=== PATIENT | male | born 1950 | race Caucasian/White ===

== ENCOUNTER 2016-11-29 17:40 | Outpatient (CLI) | payer MEDICARE ==
[2016-11-29 17:55] LABS: #Basophils 0.1 thou/uL (0.0-0.2); #Eosinphils 0.1 thou/uL (0.0-0.7); #Lymphocytes 1.9 thou/uL (1.20-3.40); #Monocytes 0.6 thou/uL (0.11-0.59); #Neutrophils 6.2 thou/uL (1.40-6.50); %Basophils 1.2 % (0.0-1.0); %Eosinophils 1.3 % (0.0-10.0); Hematocrit 51.9 % (42.0-52.0); Mean Platelet Volume 6.2 fL (7.4-10.4); Red Blood Cell (RBC) Count 5.82 mill/uL (4.70-6.10)
[2016-11-29 18:04] LABS: Hemoglobin A1c 6.8 % (4.0-6.0)
[2016-11-29 18:11] LABS: ALT (SGPT) 25 U/L (0-55); AST (SGOT) 21 U/L (5-34); Alkaline Phosphatase 75 U/L (40-150); Anion Gap 14 mmol/L (10-20); BUN (Urea Nitrogen) 9 mg/dL (8.4-25.7); Bilirubin, Total 1.2 mg/dL (0.2-1.2); Calc. Creatinine Clearance 0 mL/min (70-130); Calcium 9.5 mg/dL (7.8-10.44); Carbon Dioxide 30 mmol/L (23-31); Chloride 102 mmol/L (98-107); Estimated GFR-MDRD 84; Globulin 3.6 g/dL (2.4-3.5); Protein, Total 7.6 g/dL (5.8-8.1)
== END 2016-11-29 17:41 | disposition home or self-care (01) ==
LOC: BURLAB 17:40
PROVIDERS: ATTEND Family Medicine
DX: E53.8 Deficiency of other specified B group vitamins (principal); E11.9 Type 2 diabetes mellitus without complications; R25.1 Tremor, unspecified
CPT/HCPCS: 36415; 80053; 82390; 82607; 83036; 84443; 85025

== ENCOUNTER 2017-01-17 20:06 | Inpatient (IN) | payer MEDICARE ==
[2017-01-17 21:07] LABS: #Basophils 0.1 thou/uL (0.0-0.2); #Eosinphils 0.1 thou/uL (0.0-0.7); #Lymphocytes 1.8 thou/uL (1.20-3.40); #Monocytes 0.6 thou/uL (0.11-0.59); #Neutrophils 5.1 thou/uL (1.40-6.50); %Basophils 1.5 % (0.0-1.0); %Eosinophils 1.4 % (0.0-10.0); %Monocytes 8.1 % (0.0-10.0); %Neutrophils 65.9 % (42.0-75.0); Hemoglobin 16.5 g/dL (14.0-18.0); Mean Corpuscular HGB CONC 33.6 g/dL (32.0-36.0); Mean Corpuscular Hemoglobin 30.1 pg (27.0-31.0); Mean Corpuscular Volume 89.5 fl (80.0-94.0); Mean Platelet Volume 6.5 fL (7.4-10.4); Platelet Count 201 thou/uL (130-400); RBC Distribution Width 11.9 % (11.5-14.5); Red Blood Cell (RBC) Count 5.48 mill/uL (4.70-6.10); White Blood Cell (WBC) Count 7.8 thou/uL (4.8-10.8)
[2017-01-17 21:18] LABS: ALT (SGPT) 29 U/L (0-55); AST (SGOT) 23 U/L (5-34); Albumin 3.8 g/dL (3.4-4.8); Alkaline Phosphatase 69 U/L (40-150); Anion Gap 14 mmol/L (10-20); BUN (Urea Nitrogen) 12 mg/dL (8.4-25.7); Calc. Creatinine Clearance 0 mL/min (70-130); Calcium 9.1 mg/dL (7.8-10.44); Carbon Dioxide 24 mmol/L (23-31); Chloride 96 mmol/L (98-107); Estimated GFR-MDRD 61; Globulin 3.5 g/dL (2.4-3.5); Potassium 4.1 mmol/L (3.5-5.1); Protein, Total 7.3 g/dL (5.8-8.1); Sodium 130 mmol/L (136-145)
[2017-01-17 21:32] LABS: Glucose 573 mg/dL (80-115)
[2017-01-17] MEDS ORDERED: Insulin Regular 300 UNITS/3 ML VIAL ONE (21:55)
[2017-01-17] MEDS ORDERED: Piperacillin/Tazobactam 3.375 GM VIAL ONE (21:56)
[2017-01-18] MEDS ORDERED: Dextrose 50% Abboject 50 ML SYRINGE IVP PRN (00:28)
[2017-01-18] MEDS ORDERED: Dextrose 5% in Water 1,000 ML IV PRN (00:28)
[2017-01-18] MEDS ORDERED: traMADol HCl 50 MG TAB PO PRN ×2 (02:09→06:56)
[2017-01-18 03:50] VITALS: BMI 40.6
[2017-01-18 05:32] LABS: Hemoglobin A1c 10.3 % (4.0-6.0)
[2017-01-18] MEDS: Piperacillin/Tazobactam 3.375 GM in Sodium Chloride 0.9% 100 ML IVPB SCH ×3 (06:34→18:07)
[2017-01-18] MEDS ORDERED: Non-Formulary Item 1 EACH (Metformin Hcl [Metformin Hcl Er] 500 MG) PO SCH (09:00)
[2017-01-18] MEDS ORDERED: Sulfameth/Trimethoprim DS 800-160mg TAB PO SCH (09:00)
[2017-01-18] MEDS ORDERED: CLINDAMYCIN HCL 600 MG PO SCH (09:00)
[2017-01-18] MEDS ORDERED: DABIGATRAN 150 MG PO SCH (09:00)
[2017-01-18] MEDS ORDERED: METOPROLOL SUCCINATE 50 MG PO SCH (09:00)
[2017-01-18] MEDS ORDERED: Clindamycin 150 MG CAP PO SCH (09:00)
[2017-01-18] MEDS ORDERED: Non-Formulary Item 1 EACH (Gabapentin [Gabapentin] 600 MG) PO SCH (09:00)
[2017-01-18] MEDS ORDERED: Non-Formulary Item 1 EACH (Atorvastatin Calcium [Atorvastatin Calcium] 20 MG) PO SCH (09:00)
[2017-01-18] MEDS: Insulin Regular 300 UNITS/3 ML VIAL SC PRN ×4 (09:43→22:20)
[2017-01-18] MEDS: Atorvastatin Calcium 10 MG TAB PO SCH (09:46)
[2017-01-18] MEDS: Gabapentin 300 MG CAP PO SCH ×2 (09:46→21:43)
[2017-01-18] MEDS: Aspirin 81 mg Enteric Coated Tablet PO SCH (09:46)
[2017-01-18] MEDS: Lisinopril 5 MG TAB PO SCH (09:48)
[2017-01-18] MEDS: Vancomycin HCl 750 MG in Sodium Chloride 0.9% 250 ML 250 ML IVPB SCH ×6 (09:50→21:43)
--- NOTE | 2017-01-18 12:56 | HP ---
DATE OF ADMISSION: 01/17/2017 CHIEF COMPLAINT: Right lower extremity cellulitis and hyperglycemia. HISTORY OF PRESENT ILLNESS: 66-year-old male presented to the [facility] with a failed outpatient treatment of cellulitis affecting his right lower extremity. This a patient of Dr. Pandya who has treated him with both Clindamycin and Bactrim over the last 3 weeks; however, he has been unable to successfully clear the cellulitis involving his right lower extremity. This last weekend he notably had night sweats, but he denies fever. Upon evaluation in the emergency department, blood cultures were obtained and are pending at this time. He did not have leukocytosis and is notably afebrile. Secondary issue is a notable glucose of 573 upon admission. The patient has had diabetes mellitus since 2011; he has only been on metformin 500 mg b.i.d. to this point. A hemoglobin A1c was obtained and shown to be elevated at 10.3. The patient also has a noted history of DVT for which he is appropriately on Pradaxa. Other chronic issues include hypertension, hyperlipidemia and chronic back pain. He will be admitted for IV antibiotics to treat right lower extremity cellulitis, along with correction of his hyperglycemic state. PAST MEDICAL HISTORY: Includes diabetes mellitus type 2, hypertension, peripheral vascular disease, neuropathy, chronic back pain, coronary artery disease. PAST SURGICAL HISTORY: Double bypass, cholecystectomy, 2 umbilical hernia repairs, vascular surgery right lower extremity to remove clots. SOCIAL HISTORY: Denies ETOH, smoking or illicit drug use. He lives with her daughter and her fiancee and grandson. FAMILY HISTORY: Father is alive at age 92 with prostate cancer and hypertension. Mother is . ALLERGIES: Include FENTANYL AND OXYCODONE. CURRENT MEDICATIONS: Tramadol 50 mg p.o. b.i.d. p.r.n., metformin 500 mg p.o. b.i.d., Bactrim 825/125 DS p.o. b.i.d., Clindamycin 600 mg p.o. b.i.d., morphine extended release 50 mg p.o. q.8 h., metoprolol succinate 50 mg p.o. daily, lisinopril 5 mg p.o. daily, gabapentin 600 mg p.o. b.i.d., Pradaxa 150 mg p.o. b.i.d., Cymbalta 30 mg p.o. b.i.d., atorvastatin 20 mg p.o. at bedtime and aspirin 81 mg p.o. daily. REVIEW OF SYSTEMS: GENERAL: The patient denies fever, but has had diaphoresis. ENT: Denies sore throat, nasal drainage or congestion. CARDIOVASCULAR: Denies chest pain or palpitations. RESPIRATORY: Denies shortness of breath or cough. GASTROINTESTINAL: Denies abdominal pain, nausea, vomiting, diarrhea or constipation. GENITOURINARY: Denies dysuria or hematuria. MUSCULOSKELETAL: Does complain of back pain, chronic issue. DERMATOLOGIC: Complains of cellulitis to the right lower extremity. NEUROLOGIC: Denies headache. LABORATORY DATA: White blood cell count 7.8, H\T\H is 16.5 and 49, platelet count 201. Sodium 130, potassium 4.1, BUN 12, creatinine is 1.2, glucose at the time of admission was 573, A1c is 10.3. PHYSICAL EXAMINATION: VITAL SIGNS: Temperature is 98.3, respiratory rate is 18, pulse is 72, oxygen is 94% on room air, blood pressure is 100/57. GENERAL: The patient is alert and oriented, in no acute distress. He is overweight. FACE: No asymmetry. EYES: Conjunctivae are clear. Extraocular muscles are intact bilaterally without discharge. HEENT: Normocephalic and atraumatic. Moist mucous membranes. NECK: Supple, full range of motion. No lymphadenopathy. CARDIOVASCULAR: Regular rate and rhythm, normal S1, S2. No murmurs, rubs or gallops. RESPIRATORY: Clear to auscultation bilaterally. GASTROINTESTINAL: Soft, nontender to palpation, protuberant. EXTREMITIES: There is a dusky appearance suggestive of peripheral vascular disease changes to bilateral lower extremities, right greater than left. There is superficial warmth to the right lower extremity and is tender to palpation. SKIN: No rashes. NEUROLOGICAL: Nonfocal. Cranial nerves II-XII are intact. ASSESSMENT AND PLAN: 1. Right lower extremity cellulitis. We will discontinue p.o. medication Bactrim and clindamycin and proceed with vancomycin and Zosyn. We will follow up blood cultures and obtain vanc trough to assess for appropriate dosing. 2. Diabetes mellitus type 2, uncontrolled. We will proceed with starting a basal dose of Levemir weight based 25 units at bedtime along with a sliding scale. We will follow up Accu-Checks. 3. Hypertension. We will continue home blood pressure medications. 4. Chronic back pain. We will continue home pain medications. 5. History of deep venous thrombosis. We will continue Pradaxa. 6. Hyperlipidemia. We will continue statin. 7. Prophylaxis. We will start proton-pump inhibitor. MTDD
[2017-01-18] MEDS: Levemir Flexpen 100 UNITS/ML PEN SC SCH (22:19)
[2017-01-19] MEDS: Piperacillin/Tazobactam 3.375 GM in Sodium Chloride 0.9% 100 ML IVPB SCH ×4 (01:00→19:14)
[2017-01-19 04:44] LABS: #Basophils 0.1 thou/uL (0.0-0.2); #Eosinphils 0.1 thou/uL (0.0-0.7); #Lymphocytes 1.9 thou/uL (1.20-3.40); #Monocytes 0.6 thou/uL (0.11-0.59); #Neutrophils 5.6 thou/uL (1.40-6.50); %Basophils 1.6 % (0.0-1.0); %Eosinophils 1.4 % (0.0-10.0); %Lymphocytes 22.6 % (21.0-51.0); %Neutrophils 67.5 % (42.0-75.0); Hemoglobin 16.1 g/dL (14.0-18.0); Mean Corpuscular HGB CONC 33.9 g/dL (32.0-36.0); Mean Corpuscular Hemoglobin 30.2 pg (27.0-31.0); Mean Platelet Volume 6.4 fL (7.4-10.4); Platelet Count 181 thou/uL (130-400); RBC Distribution Width 11.7 % (11.5-14.5); Red Blood Cell (RBC) Count 5.35 mill/uL (4.70-6.10); White Blood Cell (WBC) Count 8.2 thou/uL (4.8-10.8)
[2017-01-19 05:25] LABS: ALT (SGPT) 30 U/L (0-55); AST (SGOT) 27 U/L (5-34); Albumin 3.6 g/dL (3.4-4.8); Alkaline Phosphatase 59 U/L (40-150); Anion Gap 13 mmol/L (10-20); BUN (Urea Nitrogen) 11 mg/dL (8.4-25.7); Bilirubin, Total 1.6 mg/dL (0.2-1.2); Calc. Creatinine Clearance 126 mL/min (70-130); Calcium 8.6 mg/dL (7.8-10.44); Carbon Dioxide 26 mmol/L (23-31); Chloride 101 mmol/L (98-107); Estimated GFR-MDRD 72; Glucose 244 mg/dL (80-115); Potassium 4.3 mmol/L (3.5-5.1); Protein, Total 6.6 g/dL (5.8-8.1); Sodium 136 mmol/L (136-145)
[2017-01-19] MEDS ORDERED: FLU VACC TS2016-17(65YR +) 0.5 ML SYRINGE IM ONE (09:00)
[2017-01-19] MEDS: Gabapentin 300 MG CAP PO SCH ×2 (10:30→21:15)
[2017-01-19] MEDS: Atorvastatin Calcium 10 MG TAB PO SCH (10:31)
[2017-01-19] MEDS: Aspirin 81 mg Enteric Coated Tablet PO SCH (10:31)
[2017-01-19] MEDS: Lisinopril 5 MG TAB PO SCH (10:56)
[2017-01-19] MEDS: Vancomycin HCl 750 MG in Sodium Chloride 0.9% 250 ML 250 ML IVPB SCH ×4 (11:00→23:44)
[2017-01-19] MEDS: Alogliptin Benzoate 25 MG TABLET PO SCH (11:15)
[2017-01-19] MEDS: Insulin Regular 300 UNITS/3 ML VIAL SC PRN ×2 (13:38→19:15)
--- NOTE | 2017-01-19 15:53 | ULT ---
ULTRASOUND WITH DOPPLER DUPLEX VENOUS LOWER EXTREMITY RIGHT: CPT: 49758 ICD-10-PCS: B54D INDICATION: Right lower extremity pain with history of diabetes and history of prior venous thrombosis. Patient is reported to undergo anticoagulation therapy. TECHNIQUE: Color flow Doppler, spectral waveform analysis of pulsed Doppler, and rubin-scale imaging with compre ssion and augmentation, were used to evaluate the bilateral common femoral, femoral, popliteal, post erior tibial, and superficial femoral, veins; and the proximal portions of the profunda femoral and greater saphenous, veins. FINDINGS: There is decreased compressibility of right femoral and popliteal veins. Flow is noted within this r egion. Otherwise, appropriate compressibility and flow within the deep vein system of the right lowe r extremity. IMPRESSION: Partially occlusive thrombus of the femoral vein and popliteal vein of the right lower extremity. Th is corresponds to patient's history of previously diagnosed venous thrombosis. Correlate clinically in this regard. POS: OFF
[2017-01-19 20:19] LABS: Vancomycin, Trough 9.8 ug/mL
[2017-01-19] MEDS: Levemir Flexpen 100 UNITS/ML PEN SC SCH (21:13)
[2017-01-20] MEDS ORDERED: Vancomycin HCl 500 MG in Sodium Chloride 0.9% 100 ML IVPB SCH (00:15)
[2017-01-20] MEDS: Piperacillin/Tazobactam 3.375 GM in Sodium Chloride 0.9% 100 ML IVPB SCH ×3 (02:54→15:39)
[2017-01-20] MEDS: Alogliptin Benzoate 25 MG TABLET PO SCH (09:54)
[2017-01-20] MEDS: Atorvastatin Calcium 10 MG TAB PO SCH (09:54)
[2017-01-20] MEDS: Aspirin 81 mg Enteric Coated Tablet PO SCH (09:55)
[2017-01-20] MEDS: Lisinopril 5 MG TAB PO SCH (09:56)
[2017-01-20] MEDS: Gabapentin 300 MG CAP PO SCH (09:56)
[2017-01-20] MEDS: Insulin Regular 300 UNITS/3 ML VIAL SC PRN ×3 (09:56→19:00)
--- NOTE | 2017-01-20 15:21 | DIS ---
DATE OF ADMISSION: 01/17/2017 DATE OF DISCHARGE: 01/20/2017 ADMISSION DIAGNOSES: Right lower extremity cellulitis and type 2 diabetes mellitus, uncontrolled. SECONDARY DIAGNOSES: Include hypertension, chronic back pain, history of deep vein thrombosis, hyperlipidemia and obstructive sleep apnea. PROCEDURES PERFORMED: On 01/19/2017, venous Doppler of the right lower extremity showed a partially occlusive thrombus of the femoral vein and popliteal vein of the right lower extremity, corresponding with the patient's history of previously diagnosed venous thrombosis. HOSPITAL COURSE: This is a 66-year-old male who presented to the [facility], who was found to have failed outpatient antibiotics for right lower extremity cellulitis. He had been treated with both Bactrim and clindamycin prior to his admission here via his PCP, Dr. Jacob. Labs did not reveal leukocytosis and the patient was afebrile at the time of admission; he remained afebrile throughout his stay. Blood cultures were obtained and showed no growth to date greater than 48 hours. He was treated with both vancomycin and Zosyn during his stay and will be transitioned to Doxycycline upon discharge. Upon initial evaluation of labs, he was subsequently found to have a glucose reading of 573, although he was not acidotic. Up until the time of admission, he was only taking metformin 500 mg p.o. b.i.d. The patient was started on weight-based Lantus 25 units, which he tolerated well. His metformin was increased to 1000 p.o. b.i.d. and he was also started on Januvia. The patient's glucose readings are consistently ranging in the 200s on this medication regimen. We will plan to increase the patient's basal dose of Lantus to 28 units at the time of discharge and he may follow up further as an outpatient for continued medication titration. Of note, his A1c upon admission was 10.3. The patient has a noted history of deep vein thrombosis for which he has been taking Pradaxa. He had been set up for an outpatient follow up venous Doppler of the right lower extremity. This was followed through during his stay here with the results stated above. The patient has a history of obstructive sleep apnea; however, did not have a CPAP available here. Thus, he was provided supplemental oxygen nocturnally. The patient had no setbacks during his stay and gradually improved and is appropriate for discharge at this time. FOLLOWUP: Follow up with primary care provider, Dr. Mason next week with further titration of his diabetic medication regimen. DISCHARGE MEDICATIONS: Include tramadol 50 mg p.o. b.i.d. p.r.n., metformin 1000 mg p.o. b.i.d., morphine extended release 50 mg p.o. q.8 hours, metoprolol succinate 50 mg p.o. daily, lisinopril 5 mg p.o. daily, gabapentin 600 mg p.o. b.i.d., Pradaxa 150 mg p.o. b.i.d., Cymbalta 30 mg p.o. b.i.d., atorvastatin 20 mg p.o. at bedtime and aspirin 81 mg p.o. daily. New medications other than the increased dose of metformin include Lantus 28 units at bedtime, Januvia 50 mg p.o. daily and doxycycline 100mg po bid x7 days MTDD
[2017-01-20 17:46] VITALS: BP 112/59; TEMP 98.6
== END 2017-01-20 20:50 | disposition home or self-care (01) | DRG 603 ==
LOC: BURERS 20:06 → BURMED 22:10
PROVIDERS: ADMIT Family Medicine; ATTEND Family Medicine
DX: L03.115 Cellulitis of right lower limb (principal); I82.411 Acute embolism and thrombosis of right femoral vein; E11.65 Type 2 diabetes mellitus with hyperglycemia; I73.9 Peripheral vascular disease, unspecified; I10 Essential (primary) hypertension; I82.431 Acute embolism and thrombosis of right popliteal vein; Z86.718 Personal history of other venous thrombosis and embolism; E78.5 Hyperlipidemia, unspecified; G47.33 Obstructive sleep apnea (adult) (pediatric); I25.10 Atherosclerotic heart disease of native coronary artery without angina pectoris; Z95.1 Presence of aortocoronary bypass graft; I87.8 Other specified disorders of veins
CPT/HCPCS: 36415; 36416; 80053; 80202; 83036; 85025; 87040; 90471; 90662; 96365; 96372; A4216; G0008; J1815; J2543; J3370; J7050

== ENCOUNTER 2017-07-14 11:10 | Outpatient (CLI) | payer MEDICARE ==
[2017-07-14 16:25] LABS: #Basophils 0.2 thou/uL (0.0-0.2); #Eosinphils 0.2 thou/uL (0.0-0.7); #Lymphocytes 1.4 thou/uL (1.20-3.40); #Monocytes 0.8 thou/uL (0.11-0.59); #Neutrophils 6.9 thou/uL (1.40-6.50); %Eosinophils 1.6 % (0.0-10.0); %Lymphocytes 14.9 % (21.0-51.0); %Monocytes 8.2 % (0.0-10.0); %Neutrophils 73.3 % (42.0-75.0); Mean Corpuscular HGB CONC 33.8 g/dL (32.0-36.0); Mean Corpuscular Hemoglobin 29.8 pg (27.0-31.0); Mean Corpuscular Volume 88.2 fl (80.0-94.0); Platelet Count 195 thou/uL (130-400); RBC Distribution Width 12.6 % (11.5-14.5); Red Blood Cell (RBC) Count 5.71 mill/uL (4.70-6.10); White Blood Cell (WBC) Count 9.4 thou/uL (4.8-10.8)
[2017-07-14 16:27] LABS: ALT (SGPT) 38 U/L (8-55); AST (SGOT) 28 U/L (5-34); Albumin 4.6 g/dL (3.4-4.8); Alkaline Phosphatase 64 U/L (40-150); Anion Gap 15 mmol/L (10-20); BUN (Urea Nitrogen) 13 mg/dL (8.4-25.7); Bilirubin, Total 1.4 mg/dL (0.2-1.2); Calc. Creatinine Clearance 0 mL/min (70-130); Calcium 10.4 mg/dL (7.8-10.44); Carbon Dioxide 27 mmol/L (23-31); Cardiac Risk 2.8 (Less than 4.5); Chloride 104 mmol/L (98-107); Cholesterol 103 mg/dl (< 200 Desired); Estimated GFR-MDRD 84; Globulin 3.3 g/dL (2.4-3.5); Glucose 183 mg/dL (80-115); HDL Cholesterol 37 mg/dL (>60 Neg Risk); LDL Cholesterol, Calculated 41 mg/dL; Potassium 4.9 mmol/L (3.5-5.1); Protein, Total 7.9 g/dL (5.8-8.1); Sodium 141 mmol/L (136-145); Triglycerides 125 mg/dL (Less than 150)
[2017-07-14 16:38] LABS: Hemoglobin A1c 9.4 % (4.0-6.0)
== END 2017-07-14 11:11 | disposition home or self-care (01) ==
LOC: LABLEX 11:10
PROVIDERS: ATTEND Nurse Practitioner
DX: E11.65 Type 2 diabetes mellitus with hyperglycemia (principal)
CPT/HCPCS: 80053; 80061; 83036; 84443; 85025

== ENCOUNTER 2019-03-06 11:37 | Outpatient (CLI) | payer MEDICARE ==
[2019-03-06 12:00] LABS: #Basophils 0.1 thou/uL (0.0-0.2); #Eosinphils 0.2 thou/uL (0.0-0.7); #Lymphocytes 1.6 thou/uL (1.20-3.40); #Monocytes 0.8 thou/uL (0.11-0.59); #Neutrophils 5.5 thou/uL (1.40-6.50); %Basophils 1.2 % (0.0-1.0); %Eosinophils 2.6 % (0.0-10.0); %Lymphocytes 19.1 % (21.0-51.0); %Monocytes 9.8 % (0.0-10.0); %Neutrophils 67.2 % (42.0-75.0); Hemoglobin 17.1 g/dL (14.0-18.0); Mean Corpuscular Hemoglobin 27.3 pg (27.0-31.0); Mean Corpuscular Volume 85.3 fL (78.0-98.0); Mean Platelet Volume 6.8 fL (7.4-10.4); Platelet Count 164 thou/uL (130-400); RBC Distribution Width 12.9 % (11.5-14.5); Red Blood Cell (RBC) Count 6.29 mill/uL (4.70-6.10); White Blood Cell (WBC) Count 8.2 thou/uL (4.8-10.8)
[2019-03-06 12:12] LABS: Anion Gap 15 mmol/L (10-20); BUN (Urea Nitrogen) 10 mg/dL (8.4-25.7); Calc. Creatinine Clearance 0 mL/min (70-130); Calcium 9.5 mg/dL (7.8-10.44); Carbon Dioxide 26 mmol/L (23-31); Chloride 99 mmol/L (98-107); Estimated GFR-MDRD 68; Glucose 151 mg/dL (80-115); Potassium 3.9 mmol/L (3.5-5.1); Sodium 136 mmol/L (136-145)
--- NOTE | 2019-03-06 18:54 | RAD ---
CHEST TWO VIEWS: 03/06/19 No prior films are available for comparison. The heart is mildly enlarged. There is no vascular congestion, edema, or pleural effusion. Median chanel rnotomy sutures loren prior surgery. No focal infiltrate was seen. The right hilar region is slightly prominent, but I believe it is just pulmonary artery made more prominent by the patient being turned slightly towards the right. IMPRESSION: Cardiomegaly but no definite acute findings. POS: HOME
== END 2019-03-06 11:38 | disposition home or self-care (01) ==
LOC: BURRAD 11:37
PROVIDERS: ATTEND Nurse Practitioner
DX: J20.9 Acute bronchitis, unspecified (principal); I51.7 Cardiomegaly
CPT/HCPCS: 36415; 71046; 83880

== ENCOUNTER 2021-03-09 15:47 | Emergency (ER) | payer MEDICARE ==
[2021-03-09] MEDS ORDERED: Ondansetron PF 4 MG/2 ML Vial ONE (16:48)
[2021-03-09] MEDS ORDERED: Morphine 4 MG/ML VIAL ONE (16:48)
[2021-03-09 17:05] LABS: ALT (SGPT) 19 U/L (8-55); AST (SGOT) 18 U/L (5-34); Alkaline Phosphatase 59 U/L (40-110); Anion Gap 16 mmol/L (10-20); BUN (Urea Nitrogen) 11 mg/dL (8.4-25.7); Calc. Creatinine Clearance 0 mL/min (70-130); Calcium 9.5 mg/dL (7.8-10.44); Carbon Dioxide 23 mmol/L (23-31); Chloride 106 mmol/L (98-107); Globulin 3.5 g/dL (2.4-3.5); Glucose 91 mg/dL (80-115); Potassium 3.9 mmol/L (3.5-5.1); Protein, Total 7.5 g/dL (5.8-8.1); Sodium 141 mmol/L (136-145)
[2021-03-09 17:31] LABS: INR-International Normal Ratio 1.4
[2021-03-09 17:40] LABS: D-Dimer Test Less than 0.27 *mcg/mL (0.27-0.43)
[2021-03-09 17:44] LABS: #Basophils 0.1 thou/uL (0.0-0.2); #Eosinphils 0.1 thou/uL (0.0-0.7); #Lymphocytes 1.7 thou/uL (1.20-3.40); #Monocytes 0.7 thou/uL (0.11-0.59); #Neutrophils 6.2 thou/uL (1.40-6.50); %Basophils 1.4 % (0.0-1.0); %Eosinophils 1.4 % (0.0-10.0); %Lymphocytes 19.2 % (21.0-51.0); %Monocytes 7.5 % (0.0-10.0); %Neutrophils 70.5 % (42.0-75.0); Hemoglobin 17.2 g/dL (14.0-18.0); Mean Corpuscular HGB CONC 32.4 g/dL (32.0-36.0); Mean Corpuscular Hemoglobin 28.2 pg (27.0-31.0); Mean Corpuscular Volume 86.9 fL (78.0-98.0); Mean Platelet Volume 9.4 fL (7.4-10.4); Platelet Count 178 thou/uL (130-400); RBC Distribution Width 14.6 % (11.5-14.5); White Blood Cell (WBC) Count 8.8 thou/uL (4.8-10.8)
== END 2021-03-09 16:45 | disposition short-term general hospital (02) ==
LOC: BURERS 15:47
DX: R60.0 Localized edema (principal); S80.811A Abrasion, right lower leg, initial encounter; E11.40 Type 2 diabetes mellitus with diabetic neuropathy, unspecified; E78.00 Pure hypercholesterolemia, unspecified; I10 Essential (primary) hypertension; Z86.718 Personal history of other venous thrombosis and embolism; Z86.711 Personal history of pulmonary embolism
CPT/HCPCS: 80053; 85025; 85379; 85610; 96374; 96375; J2270; J2405